=== PATIENT | female | born 1950 | race Caucasian/White ===

== ENCOUNTER → 2016-04-18 | Outpatient (CLI) | payer BC ==
[~2016-04-18] MED LIST: ASPCH81; ATOR-22 PO; LPTUNK; MIGRAINE PILL; MULT-506 PO; NXMUNK; [UNRECOGNIZED DRUG - OTHER]; [UNRECOGNIZED DRUG - REMARK]
[2016-04-18 16:16] LABS: AST/SGOT 16 U/L (15-37); BLOOD UREA NITROGEN 17 mg/dl (7-18); BUN/CREATININE RATIO 21.7 (10-20); CALCIUM 9.2 mg/dl (8.5-10.1); CARBON DIOXIDE 30 mmol/L (21-32); CHLORIDE 107 mmol/L (98-107); CREATININE 0.78 mg/dl (0.60-1.20); GLUCOSE 96 mg/dl (70-99); POTASSIUM 3.8 mmol/L (3.5-5.1); SODIUM 144 mmol/L (136-145)
[2016-04-18 16:35] LABS: ALB/GLOB RATIO 1.1 (0.9-2); ALKALINE PHOSPHATASE 83 U/L (45-117); ALT/SGPT 39 U/L (12-78); CHOLESTEROL 178 mg/dl (0-200); CHOLESTEROL/HDL RATIO 2.3; HDL CHOLESTEROL 78 mg/dl; LDL CHOLESTEROL CALCULATED 77 mg/dl; TRIGLYCERIDES 117 mg/dl (0-150); VERY LOW DENSITY LIPOPROT CALC 23 mg/dl
== END | disposition home or self-care (01) ==
LOC: C.LABBC 12:03
PROVIDERS: ATTEND Family Medicine
DX: E78.5 Hyperlipidemia, unspecified (principal); M85.80 Other specified disorders of bone density and structure, unspecified site; Z11.59 Encounter for screening for other viral diseases

== ENCOUNTER → 2016-05-08 | Outpatient (CLI) | payer BC | END | disposition home or self-care (01) | LOC: C.MAMM 07:39 | PROVIDERS: ATTEND Family Medicine | DX: M85.80 Other specified disorders of bone density and structure, unspecified site (principal); Z78.0 Asymptomatic menopausal state; Z87.891 Personal history of nicotine dependence; Z82.62 Family history of osteoporosis ==

== ENCOUNTER → 2016-06-14 | Outpatient (CLI) | payer BC ==
[2016-06-14 14:14] LABS: BASO % 0.8 %; BASO ABS # 0.03 K/uL (0-0.2); COMPLETE YES; HEMATOCRIT 39.4 % (37-47); LYMPH % 44.1 %; LYMPH ABS # 1.75 K/uL (1.2-3.4); MEAN CORPUSCULAR HEMOGLOBIN 30.2 pg (25-34); MEAN CORPUSCULAR HGB CONC 34.8 g/dl (32-36); MEAN PLATELET VOLUME 11.3 fL (7.4-10.4); MONO % 9.8 %; NEUT % 41.3 %; PLATELET COUNT 173 K/uL (130-400); RED BLOOD COUNT 4.53 M/uL (4.2-5.4); WHITE BLOOD COUNT 3.97 K/uL (4.8-10.8)
[2016-06-14 14:37] LABS: C-REACTIVE PROTEIN < 0.29 mg/dl (0-0.29); RHEUMATOID FACTOR < 10.0 U/mL (0-15)
--- NOTE | 2016-06-15 22:25 | CODING QUERY NO DIAGNOSIS ---
TREATMENT RENDERED WITHOUT A DIAGNOSIS 48 To promote full compliance with coding requirements relating to patient care, physician participation is requested in all cases of escapement maker uncertainty. Please assist us with providing a diagnosis/symptom for the test(s) below: A diagnosis/symptom was not documented on your Order. A valid diagnosis/symptom is required to bill all insurances. Please remember that we are unable to code a diagnosis of rule out, probable, possible, questionable, or suspected. DOS 06/14/16 Tests that require a diagnosis: * ALLEY SCREEN DIAGNOSIS: * HLA-B27 DIAGNOSIS * CBC W/AUTO DIFF DIAGNOSIS: * C-REACTIVE PROTEIN DIAGNOSIS: * RHEUMATOID FACTOR DIAGNOSIS: * ESR DIAGNOSIS: Provider Signature: Date: Thank you Lisa Najera [facility] Once completed, please kindly fax back to [phone] For questions please call [phone]
[2016-06-19 12:00] LABS: HLA-B27** TC 528X NEGATIVE (NEGATIVE)
[2016-06-19 12:48] LABS: ANA TITER 1:40 TITER (<1:40)
== END | disposition home or self-care (01) ==
LOC: C.LABBC 11:29
PROVIDERS: ATTEND Podiatrist Foot & Ankle Surgery
DX: M79.675 Pain in left toe(s) (principal); M79.674 Pain in right toe(s); B35.1 Tinea unguium

== ENCOUNTER → 2016-08-08 | Outpatient (CLI) | payer BC ==
--- NOTE | 2016-08-08 09:46 | DIAGNOSTIC IMAGING REPORT ---
RIGHT HIP 2 VIEWS CLINICAL HISTORY: Right hip pain. Arthritis. Positive ALLEY. FINDINGS: AP and frog-leg views of the right hip are obtained. No prior studies are available for comparison at the time of dictation. The skeletal structures are osteopenic. No fracture is seen. Mild arthritic change and joint space loss is noted in the right hip. Enthesophytes arise from the right anterior superior iliac spine and the greater trochanter of the right femur. Mild sclerotic change is noted in the right sacroiliac joint and the pubic symphysis. No evidence of erosive change is seen. There are soft tissues are within normal limits. IMPRESSION: Osteopenia and mild arthritic change as above. No acute bony abnormality is identified. Electronically signed by: Johan Thomas M.D. 08/08/2016 9:43 AM Dictated Date/Time: 08/08/2016 9:42 AM
--- NOTE | 2016-08-08 09:46 | DIAGNOSTIC IMAGING REPORT ---
LEFT HIP UNILATERAL 2 VIEWS CLINICAL HISTORY: Left hip pain. Positive antinuclear antibody COMPARISON: None. DISCUSSION: The joint space appears normal for age. There are no fractures. There is no erosive disease. IMPRESSION: Normal conventional radiographic evaluation of the left hip for age Electronically signed by: Sunil Patricia M.D. 08/08/2016 9:43 AM Dictated Date/Time: 08/08/2016 9:43 AM
--- NOTE | 2016-08-08 09:47 | DIAGNOSTIC IMAGING REPORT ---
RIGHT HAND MIN 3 VIEWS ROUTINE CLINICAL HISTORY: Arthritis. Positive nuclear antibody. COMPARISON: None. DISCUSSION: No acute fractures are visualized. There are no erosive changes. There are mild osteoarthritic type changes. IMPRESSION: Mild degenerative change. No evidence of erosive disease. No evidence of fracture. Electronically signed by: Sunil Patricia M.D. 08/08/2016 9:44 AM Dictated Date/Time: 08/08/2016 9:44 AM
--- NOTE | 2016-08-08 09:48 | DIAGNOSTIC IMAGING REPORT ---
LEFT HAND MIN 3 VIEWS ROUTINE CLINICAL HISTORY: Arthritis. Positive nuclear antibody. COMPARISON: None. DISCUSSION: There are mild osteoarthritic type changes. There are no acute fractures. There are no subluxations. There is a corticated ossicle adjacent the ulnar styloid is felt to be old. There are no erosive changes. IMPRESSION: 1. No acute fractures. 2. Mild osteoarthritic changes 3. No evidence of erosive disease Electronically signed by: Sunil Patricia M.D. 08/08/2016 9:46 AM Dictated Date/Time: 08/08/2016 9:45 AM
[2016-08-20 13:10] LABS: ANTI-CENTROMERE AB <1.0 NEG AI (<1.0 NEG); ANTI-SS-A <1.0 NEG AI (<1.0 NEG); ANTI-SS-B <1.0 NEG AI (<1.0 NEG); DNA ds CRITHIDIA NEGATIVE (NEGATIVE); Sm Antibody <1.0 NEG AI (<1.0 NEG)
[2016-08-20 13:43] LABS: ANA TITER 1:40 TITER (<1:40)
== END | disposition home or self-care (01) ==
LOC: C.RAD1850 09:12
PROVIDERS: ATTEND Internal Medicine Rheumatology
DX: M22.2X9 Patellofemoral disorders, unspecified knee (principal); M35.7 Hypermobility syndrome; R76.8 Other specified abnormal immunological findings in serum

== ENCOUNTER → 2016-08-09 | Outpatient (CLI) | payer BC ==
--- NOTE | 2016-08-09 15:08 | MAMMOGRAPHY REPORT ---
BILATERAL DIGITAL SCREENING MAMMOGRAM WITH CAD: 08/09/2016 CLINICAL HISTORY: Routine screening. Patient has no complaints. TECHNIQUE: Current study was also evaluated with a Computer Aided Detection (CAD) system. Bilatera l CC and MLO views were obtained. COMPARISON: Comparison is made to exams dated: 05/02/2010 mammogram, 04/28/2009 mammogram - [facility], 04/26/2008, 04/23/2007, 04/19/2006, and 04/10/2005 mammogram - [facility]. BREAST COMPOSITION: The tissue of both breasts is almost entirely fatty. FINDINGS: No suspicious masses, calcifications, or areas of architectural distortion are noted in e ither breast. There has been no significant interval change compared to prior exams. A biopsy marke r clip is again noted in the left upper outer quadrant. Bilateral benign-appearing calcifications a nd benign-appearing right breast mass are stable compared to prior exams. IMPRESSION: ACR BI-RADS CATEGORY 2: BENIGN There is no mammographic evidence of malignancy. A 1 year screening mammogram is recommended. The p atient will receive written notification of the results. Approximately 10% of breast cancers are not detected with mammography. A negative mammographic repor t should not delay biopsy if a clinically suggestive mass is present. Angela Porter M.D. ah/:08/09/2016 10:19:28 Mail Processing Machine Operator: Emily SMYTH)(M), [facility] letter sent: Normal 1/2 BI-RADS Code: ACR BI-RADS Category 2: Benign
== END | disposition home or self-care (01) ==
LOC: C.MAMM 08:13
PROVIDERS: ATTEND Family Medicine
DX: Z12.31 Encounter for screening mammogram for malignant neoplasm of breast (principal)

== ENCOUNTER → 2016-09-14 | Outpatient (CLI) | payer BC | END | disposition home or self-care (01) | LOC: C.CPL 08:49 | PROVIDERS: ATTEND Orthopaedic Surgery | DX: Z01.810 Encounter for preprocedural cardiovascular examination (principal) ==